=== PATIENT | female | born 1950 | race Caucasian/White ===

== ENCOUNTER 2016-12-27 13:44 | Emergency (ER) | payer SELFPAY ==
[2016-12-27 14:13] VITALS: BP 141/73
--- NOTE | 2016-12-27 15:51 | UC ---
Skin Complaint HPI - HPI Summary HPI Summary: 66 yo female awoke with very pruritic rash yesterday am she suspects insect bites no pain now with swelling and erythema surrounding "bite" on right episcopal right lid edema and redness no f/c - History of Current Complaint Chief Complaint: UCSkin Time Seen by Provider: 12/27/16 15:32 Stated Complaint: INSECT BITES Hx Obtained From: Patient Onset/Duration: Gradual Onset, Lasting Hours Timing: Constant Onset Severity: Mild Current Severity: Mild Pain Intensity: 1 Pain Scale Used: 0-10 Numeric Character: Swelling, Pruritus, Redness Aggravating: Nothing Alleviating: OTC Meds Associated Signs & Symptoms: Positive: Negative - Allergy/Home Medications Allergies/Adverse Reactions: Allergies Allergy/AdvReac Type Severity Reaction Status Date / Time Penicillins Allergy See Comment Verified 12/27/16 14:09 Home Medications: Home Medications Omeprazole CAP* [Prilosec CAP* 20 MG] 20 mg PO DAILY PRN 12/27/16 [History Confirmed 12/27/16] Review of Systems Constitutional: Negative Skin: Rash Eyes: Negative ENT: Negative Respiratory: Negative Cardiovascular: Negative Gastrointestinal: Negative Genitourinary: Negative Motor: Negative Neurovascular: Negative Musculoskeletal: Negative Neurological: Negative Psychological: Negative All Other Systems Reviewed And Are Negative: Yes PMH/Surg Hx/FS Hx/Imm Hx - Surgical History Surgical History: Yes Surgery Procedure, Year, and Place: x2. appendectomy - Family History Known Family History: Positive: Hypertension - Social History Alcohol Use: Occasionally Substance Use Type: None Smoking Status (MU): Never Smoked Tobacco Physical Exam Triage Information Reviewed: Yes Appearance: Well-Appearing, No Pain Distress, Well-Nourished Vital Signs: Initial Vital Signs Temp 98.8 F 12/27/16 14:02 Pulse 74 12/27/16 14:02 Resp 16 12/27/16 14:02 BP 141/73 12/27/16 14:02 Pulse Ox 99 12/27/16 14:02 Vital Signs Reviewed: Yes Eyes: Positive: Conjunctiva Clear ENT: Positive: Hearing grossly normal. Negative: Nasal congestion, Nasal drainage, Trismus, Muffled/hoarse voice Neck: Positive: Supple, Nontender Respiratory: Positive: Lungs clear, Normal breath sounds, No respiratory distress, No accessory muscle use Cardiovascular: Positive: RRR, No Murmur, Pulses Normal Musculoskeletal: Positive: ROM Intact, No Edema Neurological: Positive: Alert Psychological Exam: Normal Skin Exam: Other - see image Course/Dx - Diagnoses Provider Diagnoses: local reaction to insect bites. cellulitis Discharge - Discharge Plan Condition: Stable Disposition: HOME Prescriptions: Cephalexin CAP* [Keflex CAP*] 500 mg PO QID #28 cap Patient Education Materials: Insect Bite or Sting (ED) Referrals: No Primary Care Phys,NOPCP [Primary Care Provider] - Additional Instructions: cool compresses/ice recheck for worsening symptoms or if not better in 3 days benadryl if needed Images Head: 1 - red macule 2 - red/swollen 3 - one papule and 2 excoriated lesions. NO VESICLES
== END 2016-12-27 15:45 | disposition home or self-care (01) ==
LOC: UCCORT 13:44
DX: S00.86XA Insect bite (nonvenomous) of other part of head, initial encounter (principal); W57.XXXA Bitten or stung by nonvenomous insect and other nonvenomous arthropods, initial encounter; Y93.9 Activity, unspecified; Y92.9 Unspecified place or not applicable; Z88.0 Allergy status to penicillin; L03.811 Cellulitis of head [any part, except face]
CPT/HCPCS: 99202; G0463